=== PATIENT | female | born 1955 | race Asian ===

== ENCOUNTER 2017-07-31 14:18 | Outpatient (CLI) | payer OTHER | END 2017-07-31 22:51 | disposition home or self-care (01) | LOC: RAD 14:18 | DX: M25.561 Pain in right knee (principal); M25.562 Pain in left knee ==

== ENCOUNTER 2017-08-18 09:19 | Outpatient (CLI) | payer OTHER | END 2017-08-18 22:44 | disposition home or self-care (01) | LOC: RAD 09:19 | DX: M85.88 Other specified disorders of bone density and structure, other site (principal); Z13.820 Encounter for screening for osteoporosis ==

== ENCOUNTER 2017-10-27 14:28 | Outpatient (CLI) | payer OTHER | END 2017-10-27 22:33 | disposition home or self-care (01) | LOC: RAD 14:28 | DX: M25.551 Pain in right hip (principal) ==

== ENCOUNTER 2018-06-19 16:48 | Outpatient (CLI) | payer OTHER ==
[2018-06-19] MEDS ORDERED: MOBIC15 MG PO (23:07)
[2018-06-19] MEDS ORDERED: LISI20TA11 PO (23:08)
[2018-06-19] MEDS ORDERED: LEVOCETIRIZINE D5 MG PO (23:08)
[2018-06-19] MEDS ORDERED: PAROXETINE40 MG PO (23:09)
[2018-06-19] MEDS ORDERED: AMLODIPINE BESYLATE PO (23:10)
[2018-06-19] MEDS ORDERED: GABA300C2 PO (23:10)
== END 2018-06-19 16:53 | disposition short-term general hospital (02) ==
LOC: AMB 16:48
DX: R06.09 Other forms of dyspnea (principal)
CPT/HCPCS: A0425; A0427

== ENCOUNTER 2018-06-19 17:03 | Inpatient (IN) | payer OTHER ==
[2018-06-19] VITALS (8 sets, daily range): BP systolic 104–160; BP diastolic 75–93; TEMP 101–101.3
[~2018-06-19] VITALS: Ht 162.6 cm; Wt 163.5 kg
[2018-06-19 17:28] LABS: PLATELET COUNT 382 K/uL (152-353)
[2018-06-19 17:36] LABS: POTASSIUM 3.1 mmol/L (3.6-5.2); SODIUM 136 mmol/L (136-145)
[2018-06-19] MEDS ORDERED: MOBIC15 MG PO (23:07)
[2018-06-19] MEDS ORDERED: LEVOCETIRIZINE D5 MG PO (23:08)
[2018-06-19] MEDS ORDERED: LISI20TA11 PO (23:08)
[2018-06-19] MEDS ORDERED: PAROXETINE40 MG PO (23:09)
[2018-06-19] MEDS ORDERED: AMLODIPINE BESYLATE PO (23:10)
[2018-06-19] MEDS ORDERED: GABA300C2 PO (23:10)
[2018-06-20] VITALS (26 sets, daily range): BP systolic 120–169; BP diastolic 60–96; TEMP 97.9–99.4; Ht 162.6 cm; Wt 163.5 kg
[2018-06-21] VITALS (25 sets, daily range): BP systolic 113–191; BP diastolic 47–108; TEMP 98.2–99.5
[2018-06-21 05:35] LABS: PLATELET COUNT 356 K/uL (152-353)
[2018-06-21 05:52] LABS: POTASSIUM 3.6 mmol/L (3.6-5.2)
[2018-06-22] VITALS (25 sets, daily range): BP systolic 103–165; BP diastolic 62–108; TEMP 98.7–100
[2018-06-22 06:42] LABS: PLATELET COUNT 353 K/uL (152-353)
[2018-06-22 06:45] LABS: POTASSIUM 3.8 mmol/L (3.6-5.2)
[2018-06-23] VITALS (21 sets, daily range): BP systolic 121–183; BP diastolic 80–105; TEMP 98.2–100.7
[2018-06-23 06:03] LABS: POTASSIUM 3.6 mmol/L (3.6-5.2)
[2018-06-24] VITALS (8 sets, daily range): BP systolic 142–168; BP diastolic 89–100; TEMP 98.3–98.9
[2018-06-24 06:40] LABS: PLATELET COUNT 313 K/uL (152-353)
[2018-06-24 06:52] LABS: POTASSIUM 3.4 mmol/L (3.6-5.2)
[2018-06-25] VITALS: BP 127/93; TEMP 98.3
[2018-06-25 04:00] VITALS: BP 159/88; TEMP 97.7
[2018-06-25 06:31] LABS: POTASSIUM 3.6 mmol/L (3.6-5.2)
[2018-06-25 08:00] VITALS: BP 168/88; TEMP 97.9
[2018-06-25 09:28] LABS: PLATELET COUNT 331 K/uL (152-353)
[2018-06-25 09:53] LABS: POTASSIUM 3.5 mmol/L (3.6-5.2)
[2018-06-25] MEDS ORDERED: IPRATROPIUM/ INH (11:23)
[2018-06-25] MEDS ORDERED: NEBULIZE1 INH (11:25)
[2018-06-25 12:00] VITALS: BP 139/90; TEMP 98.2
== END 2018-06-25 16:00 | disposition home or self-care (01) | DRG 190 ==
LOC: ED 17:03 → MED/SURG 22:42 → ICU 06-20 00:40 → MED/SURG 06-24 15:40
PROVIDERS: Emergency Medicine; Family Medicine; ADMIT Internal Medicine
DX: J44.0 Chronic obstructive pulmonary disease with (acute) lower respiratory infection (principal); J18.8 Other pneumonia, unspecified organism; J44.1 Chronic obstructive pulmonary disease with (acute) exacerbation; I27.20 Pulmonary hypertension, unspecified; I50.9 Heart failure, unspecified
CPT/HCPCS: 36415; 36600; 51702; 80048; 80053; 81000; 82550; 82553; 82805; 83880; 84484; 85007; 85027; 87040; 87070; 87205; 87899; 93005; 93306; 94640; 94660; 94664; 94760; 96365; 96366; 96375; 99285; J0456; J0696; J1650; J1940; J2930; Q9963

== ENCOUNTER 2018-10-21 15:24 | Emergency (ER) | payer OTHER ==
[~2018-10-21] VITALS: Ht 162.6 cm; Wt 163.3 kg
[~2018-10-21 15:24] MED LIST: AMLODIPINE BESYLATE PO; GABA300C2 PO; IPRATROPIUM/ INH; LEVOCETIRIZINE D5 MG PO; LISI20TA11 PO; MOBIC15 MG PO; NEBULIZE1 INH; PAROXETINE40 MG PO
[2018-10-21 15:35] VITALS: TEMP 97
[2018-10-21 15:52] LABS: PLATELET COUNT 414 K/uL (152-353)
[2018-10-21 16:10] LABS: PARTIAL THROMBOPLASTIN TIME 25.9 SECONDS (24.5-33.6)
[2018-10-21 16:13] LABS: POTASSIUM 5.8 mmol/L (3.6-5.2); SODIUM 136 mmol/L (136-145)
[2018-10-21 17:30] VITALS: BP 104/72
== END 2018-10-21 17:26 | disposition short-term general hospital (02) ==
LOC: ED 15:24
PROVIDERS: Hospitalist
DX: N17.9 Acute kidney failure, unspecified (principal); E86.0 Dehydration; I50.9 Heart failure, unspecified
CPT/HCPCS: 36415; 80053; 82550; 83880; 84484; 85027; 85610; 85730; 93005; 96360; 96361; 96375; 99284; J1940; J2405

== ENCOUNTER 2018-10-21 18:10 | Outpatient (CLI) | payer OTHER | END 2018-10-21 19:24 | disposition short-term general hospital (02) | LOC: AMB 18:10 | DX: N17.8 Other acute kidney failure (principal); E66.8 Other obesity | CPT/HCPCS: A0425; A0429 ==

== ENCOUNTER 2019-01-17 11:06 | Outpatient (CLI) | payer OTHER | END 2019-01-17 20:25 | disposition home or self-care (01) | LOC: RAD 11:06 | DX: M25.551 Pain in right hip (principal) ==

== ENCOUNTER 2019-01-25 11:16 | Outpatient (CLI) | payer OTHER ==
[2019-01-25] MEDS ORDERED: GABA300C2 PO (18:47)
[2019-01-25] MEDS ORDERED: CALC667T2 PO (18:48)
[2019-01-25] MEDS ORDERED: DICL75TA4 PO (18:49)
== END 2019-01-25 11:21 | disposition short-term general hospital (02) ==
LOC: AMB 11:16
DX: R06.02 Shortness of breath (principal); R06.2 Wheezing
CPT/HCPCS: A0425; A0427

== ENCOUNTER 2019-01-25 11:26 | Observation (INO) | payer OTHER ==
[~2019-01-25] VITALS: Ht 162.6 cm; Wt 189.7 kg
[2019-01-25] VITALS (10 sets, daily range): BP systolic 150–192; BP diastolic 77–111; TEMP 97.7–98.7
[2019-01-25 12:09] LABS: PLATELET COUNT 403 K/uL (152-353)
[2019-01-25 12:19] LABS: POTASSIUM 3.7 mmol/L (3.6-5.2); SODIUM 143 mmol/L (136-145)
[2019-01-25] MEDS ORDERED: GABA300C2 PO (18:47)
[2019-01-25] MEDS ORDERED: CALC667T2 PO (18:48)
[2019-01-25] MEDS ORDERED: DICL75TA4 PO (18:49)
[2019-01-26 04:00] VITALS: BP 149/86; TEMP 97.8
[2019-01-26 04:51] LABS: PLATELET COUNT 394 K/uL (152-353)
[2019-01-26 05:14] LABS: POTASSIUM 3.8 mmol/L (3.6-5.2)
[2019-01-26 08:00] VITALS: BP 160/92; TEMP 98.2
[2019-01-26 12:00] VITALS: BP 154/78; TEMP 97.9
== END 2019-01-26 13:20 | disposition home or self-care (01) ==
LOC: ED 11:26 → MED/SURG 16:45
PROVIDERS: Family Medicine; ADMIT Family Medicine
DX: J44.1 Chronic obstructive pulmonary disease with (acute) exacerbation (principal); I83.009 Varicose veins of unspecified lower extremity with ulcer of unspecified site; I89.0 Lymphedema, not elsewhere classified; R53.81 Other malaise
CPT/HCPCS: 36415; 36600; 51702; 80053; 81000; 82805; 83735; 83880; 84100; 84484; 85027; 93005; 94640; 94664; 94760; 96374; 96375; 99220; 99284; G0378; J1650; J1940; J2930; J3490

== ENCOUNTER 2019-01-30 11:10 | Inpatient (IN) | payer OTHER ==
[~2019-01-30 11:10] MED LIST changes: +CALC667T2 PO; +DICL75TA4 PO
== END 2019-02-06 18:30 | disposition home or self-care (01) ==
LOC: PAVB 11:10
PROVIDERS: ADMIT Family Medicine

== ENCOUNTER 2019-01-31 05:12 | Outpatient (CLI) | payer OTHER ==
[2019-01-31 05:48] LABS: PLATELET COUNT 420 K/uL (152-353)
[2019-01-31 06:10] LABS: POTASSIUM 3.9 mmol/L (3.6-5.2)
== END 2019-01-31 23:26 | disposition home or self-care (01) ==
LOC: LAB 05:12
PROVIDERS: Family Medicine
DX: Z16.24 Resistance to multiple antibiotics (principal); I50.9 Heart failure, unspecified; Z86.11 Personal history of tuberculosis; I11.0 Hypertensive heart disease with heart failure
CPT/HCPCS: 80053; 80061; 82306; 82607; 83540; 84443; 85027; 86480; 87081

== ENCOUNTER 2019-02-05 11:10 | Outpatient (CLI) | payer OTHER | END 2019-02-05 20:19 | disposition home or self-care (01) | LOC: RAD 11:10 | DX: R79.89 Other specified abnormal findings of blood chemistry (principal) ==

== ENCOUNTER 2020-07-19 09:02 | Emergency (ER) | payer OTHER ==
[~2020-07-19] VITALS: Ht 162.6 cm; Wt 144.2 kg
[2020-07-19 10:02] LABS: PLATELET COUNT 326 K/uL (152-353)
[2020-07-19 10:56] LABS: PARTIAL THROMBOPLASTIN TIME 23.3 SECONDS (24.5-33.6)
[2020-07-19 10:57] LABS: POTASSIUM 4.3 mmol/L (3.6-5.2); SODIUM 139 mmol/L (136-145)
[2020-07-19 11:55] VITALS: BP 151/82; TEMP 98.3
== END 2020-07-19 12:44 | disposition short-term general hospital (02) ==
LOC: ED 09:02
PROVIDERS: Hospitalist
DX: J44.1 Chronic obstructive pulmonary disease with (acute) exacerbation (principal); I50.9 Heart failure, unspecified; R09.02 Hypoxemia; Z20.822 Contact with and (suspected) exposure to COVID-19; F17.210 Nicotine dependence, cigarettes, uncomplicated
CPT/HCPCS: 36415; 36600; 80053; 81000; 82550; 82805; 83880; 84484; 85027; 85610; 85730; 87502; 87635; 87651; 93005; 94660; 94664; 96374; 99285; J1100; U0003

== ENCOUNTER 2020-08-08 22:55 | Emergency (ER) | payer OTHER ==
[~2020-08-08] VITALS: Ht 162.6 cm; Wt 144.2 kg
[2020-08-08 22:55] VITALS: TEMP 97.9
[2020-08-08 23:24] LABS: PLATELET COUNT 329 K/uL (152-353)
[2020-08-09 00:05] LABS: POTASSIUM 3.4 mmol/L (3.6-5.2); SODIUM 142 mmol/L (136-145)
[2020-08-09] MEDS ORDERED: FURO40TA93 PO (00:05)
[2020-08-09 02:01] VITALS: BP 147/100
[2020-08-09 05:11] LABS: PARTIAL THROMBOPLASTIN TIME 22.7 SECONDS (24.5-33.6)
== END 2020-08-09 02:01 | disposition short-term general hospital (02) ==
LOC: ED 23:00
PROVIDERS: Family Medicine
PROC: 0T9B70Z Drainage of Bladder with Drainage Device, Via Natural or Artificial Opening (ICD-10-PCS; principal; 2020-08-08)
DX: J96.00 Acute respiratory failure, unspecified whether with hypoxia or hypercapnia (principal); J81.1 Chronic pulmonary edema; Z20.822 Contact with and (suspected) exposure to COVID-19; F17.210 Nicotine dependence, cigarettes, uncomplicated
CPT/HCPCS: 36600; 51702; 80053; 81000; 82550; 82805; 83880; 84484; 85027; 85610; 85730; 87635; 93005; 94640; 94660; 94664; 96365; 96366; 99284; J0696; U0003

== ENCOUNTER 2020-08-31 12:22 | Inpatient (IN) | payer OTHER ==
[~2020-08-31] VITALS: Ht 162.6 cm; Wt 175.7 kg
[~2020-08-31 12:22] MED LIST changes: +FURO40TA93 PO
[2020-08-31 12:28] VITALS: BP 107/71; TEMP 98.4
[2020-08-31 13:23] LABS: PLATELET COUNT 292 K/uL (152-353)
[2020-08-31 13:53] LABS: POTASSIUM 3.2 mmol/L (3.6-5.2)
--- NOTE | 2020-08-31 16:45 | NUR ---
PT HAD 16F OGDEN INSERTED BY MATT SUÁREZ CNA PER DOCTORS ORDERS. INSERTION WENT WITHOUT DIFFICULTY AND CLEAR URINE FILLED THE OGDEN BAG UPON INSERTION.
[2020-08-31 16:51] VITALS: BP 166/101; TEMP 98.1; Ht 162.6 cm; Wt 175.7 kg
[2020-08-31 20:00] VITALS: BP 140/83; TEMP 98.2
[2020-08-31] MEDS ORDERED: BUDE1AER3 INH (21:09)
[2020-08-31] MEDS ORDERED: NAPROXEN DR500 MG PO (21:10)
[2020-09-01 00:20] VITALS: BP 142/91; TEMP 98.2
[2020-09-01 04:00] VITALS: BP 140/87; TEMP 98.5
[2020-09-01 05:22] LABS: PLATELET COUNT 274 K/uL (152-353)
[2020-09-01 05:29] LABS: POTASSIUM 3.8 mmol/L (3.6-5.2)
[2020-09-01 08:00] VITALS: BP 135/76; TEMP 98.4
[2020-09-01 12:00] VITALS: BP 112/48; TEMP 98.4
--- NOTE | 2020-09-01 14:00 | NUR ---
PT ASKED FOR HELP TO THE RESTROOM FOR A BOWEL MOVEMENT. WHEN BEGINNING TO ASSIST PT IT CAME AWARE THAT THE PT HAD ALREADY HAD A BOWEL MOVEMENT. PT RECIEVED A BED BATH, CATHETER CARE, AND LINEN CHANGE. AND IS NOW RESTING IN HIGH FOWLERS WITH NO SIGNS OF DISTRESS.
[2020-09-01 16:00] VITALS: BP 146/76; TEMP 98.5
[2020-09-01 20:00] VITALS: BP 133/70; TEMP 99.2
--- NOTE | 2020-09-01 20:45 | NUR ---
ENTERED PATIENT'S ROOM. PATIENT IN HIGH SMA'S POSITION WATCHING TV. NC @ 3L/MIN. NAD NOTED. SHE STATES THAT SHE NEEDS TO HAVE A BOWEL MOVEMENT. ALERT AND ORIENTED X4. PATIENT ASSISTED TO BSC BY PCT AND MYSELF. SHE DID USE A WALKER FOR BALANCE AND WAS ABLE TO STAND AND PIVOT TO BSC WITH NO ISSUES. PATIENT NOTED TO HAVE SOME INCONTINENCE OF BOWELS BUT ALSO HAD A SMALL LOOSE BM IN THE BSC. ASSISTED BACK TO BED WITH NO ISSUES. BED LOCKED AND IN LOWEST POSITION. NC INTACT. CALL LIGHT WITHIN REACH.
--- NOTE | 2020-09-01 21:30 | NUR ---
PATIENT NOTED TO BE NON-COMPLIANT WITH WEARING HER O2 AFTER MULTIPLE ATTEMPTS TO REMIND HER. 20G TO LEFT AC FLUSHED WITH NS AND LASIX 40MG GIVEN SCHEDULED. NO OTHER CONCERNS OR COMPLAINTS VOICED. IT IS NOTED UPON ASSESSMENT THAT PATIENT'S RIGHT EYE IS RED AND DRAINING. SHE STATES THAT IT HAPPENS FREQUENTLY, AND SHE HAS SOME DROPS AT HOME FOR IT. CALL LIGHT WITHIN REACH.
[2020-09-02] VITALS (7 sets, daily range): BP systolic 100–130; BP diastolic 57–71; TEMP 97.7–98.7
--- NOTE | 2020-09-02 03:00 | NUR ---
PATIENT AWAKE AND WATCHING TV. NC INTACT. NAD NOTED. ENCOURAGED PATIENT TO TRY TO GET SOME REST. SHE STATES SHE DOES HAVE TROUBLE SLEEPING AT HOME SOMETIMES. CALL LIGHT WITHIN REACH.
--- NOTE | 2020-09-02 23:47 | NUR ---
NOTIFIED PHYSICIAN AT THIS TIME OF PT. EXPRESSING TROUBLE SLEEPING IN NEW SURROUNDINGS AND STATED "MY GABAPENTIN NORMALLY HELPS ME REST BUT NOT NOW." RECEIVED A TELEPHONE ORDER FOR DR. DAMON IN THE ER FOR AMBIEN 10 MG PO ONE TIME DOSE. WILL MONITOR PT. NOTED AND CARRIED OUT.
[2020-09-03 03:44] VITALS: BP 106/72; TEMP 97.8
--- NOTE | 2020-09-03 06:19 | NUR ---
PATIENT WAS HELPED TO THE BS AND HAD A SMALL SOFT BOWL MOVEMENT. PATIENT IS NOW RESTING QUIETLY IN HIGH FOWLERS
[2020-09-03 08:00] VITALS: BP 123/73; TEMP 98
[2020-09-03 09:10] LABS: PLATELET COUNT 278 K/uL (152-353)
[2020-09-03 09:22] LABS: POTASSIUM 3.5 mmol/L (3.6-5.2)
--- NOTE | 2020-09-03 09:36 | NUR ---
CRITICAL LAB CALLED TO FLOOR BY NOELLE. CO2 OF 48.
[2020-09-03] MEDS ORDERED: POTA20TA4 PO (11:43)
[2020-09-03 12:00] VITALS: BP 125/75; TEMP 98.1
--- NOTE | 2020-09-03 13:10 | NUR ---
1220 PT VOIDED 250ML
--- NOTE | 2020-09-03 13:12 | NUR ---
IV D/C INTACT. D/C INSTRUCTIONS GIVEN TO PT AND FIDEL VINES. BOTH VERBALIZE UNDERSTANDING. NEW MED EDUCATION PROVIDED
--- NOTE | 2020-09-03 14:14 | NUR ---
PT OUT OF FACILTY VIA WC ACCOMPANIED BY NURSING STAFF AND SON.
== END 2020-09-03 14:15 | disposition home or self-care (01) | DRG 189 ==
LOC: ED 12:22 → MED/SURG 14:35 → UNDODEPER 09-02 15:59 → MED/SURG 09-03 14:15
PROVIDERS: Emergency Medicine; Internal Medicine; ADMIT Internal Medicine Endocrinology, Diabetes & Metabolism; ATTEND Internal Medicine Endocrinology, Diabetes & Metabolism
DX: J96.21 Acute and chronic respiratory failure with hypoxia (principal); I11.0 Hypertensive heart disease with heart failure; I50.9 Heart failure, unspecified; E66.01 Morbid (severe) obesity due to excess calories; Z68.43 Body mass index [BMI] 50.0-59.9, adult; F41.8 Other specified anxiety disorders; E87.6 Hypokalemia; J44.9 Chronic obstructive pulmonary disease, unspecified; R73.09 Other abnormal glucose
CPT/HCPCS: 36415; 80048; 80053; 82550; 82553; 83735; 83880; 84484; 85027; 87635; 93005; 94664; 94760; 96374; 99284; J1650; J1940; U0003

== ENCOUNTER 2020-09-14 13:10 | Emergency (ER) | payer OTHER ==
[~2020-09-14] VITALS: Ht 162.6 cm; Wt 175.5 kg
[~2020-09-14 13:10] MED LIST changes: +BUDE1AER3 INH; +NAPROXEN DR500 MG PO; +POTA20TA4 PO
[2020-09-14 13:12] VITALS: TEMP 97.6
[2020-09-14 13:33] LABS: PLATELET COUNT 444 K/uL (152-353)
[2020-09-14 13:42] LABS: POTASSIUM 3.8 mmol/L (3.6-5.2); SODIUM 144 mmol/L (136-145)
[2020-09-14 15:30] VITALS: BP 163/93
== END 2020-09-14 15:45 | disposition home or self-care (01) ==
LOC: ED 13:10
PROVIDERS: Emergency Medicine
DX: R06.09 Other forms of dyspnea (principal); M54.5 Low back pain; E66.8 Other obesity
CPT/HCPCS: 80053; 83880; 84484; 85027; 85379; 93005; 96374; 99284; J1940

== ENCOUNTER 2020-10-08 17:17 | Emergency (ER) | payer OTHER ==
[~2020-10-08] VITALS: Ht 162.6 cm; Wt 175.5 kg
[2020-10-08 17:17] VITALS: TEMP 97
[2020-10-08 18:00] LABS: PLATELET COUNT 353 K/uL (152-353)
[2020-10-08 18:15] LABS: POTASSIUM 3.3 mmol/L (3.6-5.2); SODIUM 145 mmol/L (136-145)
[2020-10-08 19:04] LABS: PARTIAL THROMBOPLASTIN TIME 24.1 SECONDS (24.5-33.6)
[2020-10-09 00:30] VITALS: BP 145/86
== END 2020-10-09 01:15 | disposition home or self-care (01) ==
LOC: ED 17:32
PROVIDERS: Emergency Medicine
DX: I50.9 Heart failure, unspecified (principal); J44.9 Chronic obstructive pulmonary disease, unspecified; F17.210 Nicotine dependence, cigarettes, uncomplicated; E66.8 Other obesity
CPT/HCPCS: 80053; 82550; 83880; 84484; 85027; 85379; 85610; 85730; 93005; 96374; 99284; J1940

== ENCOUNTER 2020-10-11 15:30 | Emergency (ER) | payer OTHER ==
[~2020-10-11] VITALS: Ht 162.6 cm; Wt 213.2 kg
[2020-10-11 15:35] VITALS: TEMP 97.7
[2020-10-11 16:21] LABS: PLATELET COUNT 445 K/uL (152-353)
[2020-10-11 16:40] LABS: POTASSIUM 3.4 mmol/L (3.6-5.2); SODIUM 146 mmol/L (136-145)
[2020-10-11 20:07] VITALS: BP 149/91
== END 2020-10-11 20:45 | disposition home or self-care (01) ==
LOC: ED 15:30
PROVIDERS: Hospitalist
DX: I50.9 Heart failure, unspecified (principal); J44.9 Chronic obstructive pulmonary disease, unspecified; Z99.81 Dependence on supplemental oxygen; F17.210 Nicotine dependence, cigarettes, uncomplicated; Z20.822 Contact with and (suspected) exposure to COVID-19
CPT/HCPCS: 80053; 82550; 83880; 84484; 85027; 85610; 85730; 87635; 93005; 94664; 96374; 96375; 99284; J1940; J2930; U0003

== ENCOUNTER 2020-10-19 12:18 | Emergency (ER) | payer OTHER ==
[~2020-10-19] VITALS: Ht 162.6 cm; Wt 213.2 kg
[2020-10-19 13:22] LABS: PLATELET COUNT 302 K/uL (152-353)
[2020-10-19 13:27] LABS: SODIUM 144 mmol/L (136-145)
[2020-10-19 20:15] VITALS: BP 112/65; TEMP 98
== END 2020-10-19 20:15 | disposition home or self-care (01) ==
LOC: ED 12:18
PROVIDERS: Emergency Medicine Emergency Medical Services
PROC: 0T9B70Z Drainage of Bladder with Drainage Device, Via Natural or Artificial Opening (ICD-10-PCS; principal; 2020-10-19)
DX: R23.8 Other skin changes (principal); N39.0 Urinary tract infection, site not specified
CPT/HCPCS: 36415; 51702; 80053; 81000; 83880; 84484; 85027; 85610; 87040; 87077; 87086; 87088; 87186; 93005; 96365; 96375; 99284; J0696; J1940

== ENCOUNTER 2020-11-23 14:11 | Emergency (ER) | payer OTHER ==
[~2020-11-23] VITALS: Ht 162.6 cm; Wt 213.2 kg
[2020-11-23 14:20] VITALS: TEMP 97.4
[2020-11-23 14:42] LABS: PLATELET COUNT 270 K/uL (152-353)
[2020-11-23 14:45] LABS: POTASSIUM 4.9 mmol/L (3.6-5.2); SODIUM 143 mmol/L (136-145)
[2020-11-23 17:39] VITALS: BP 125/89
== END 2020-11-23 17:43 | disposition home or self-care (01) ==
LOC: ED 14:11
PROVIDERS: Emergency Medicine Emergency Medical Services
PROC: 0T9B70Z Drainage of Bladder with Drainage Device, Via Natural or Artificial Opening (ICD-10-PCS; principal; 2020-11-23)
DX: R60.0 Localized edema (principal); Z20.822 Contact with and (suspected) exposure to COVID-19
CPT/HCPCS: 51702; 80053; 81000; 83880; 84484; 85027; 87635; 93005; 96374; 96375; 96376; 99284; J1885; J1940; U0003

== ENCOUNTER 2020-12-04 12:38 | Emergency (ER) | payer OTHER ==
[~2020-12-04] VITALS: Ht 162.6 cm; Wt 213.2 kg
[2020-12-04 15:12] LABS: PLATELET COUNT 382 K/uL (152-353)
[2020-12-04 15:24] LABS: PARTIAL THROMBOPLASTIN TIME 26.4 SECONDS (24.5-33.6)
[2020-12-04 15:33] LABS: POTASSIUM 4.1 mmol/L (3.6-5.2); SODIUM 143 mmol/L (136-145)
[2020-12-04 22:56] VITALS: BP 141/87; TEMP 97.5
== END 2020-12-04 22:56 | disposition home or self-care (01) ==
LOC: ED 12:38
PROVIDERS: Hospitalist
DX: I50.9 Heart failure, unspecified (principal); J44.9 Chronic obstructive pulmonary disease, unspecified; J18.9 Pneumonia, unspecified organism; Z20.822 Contact with and (suspected) exposure to COVID-19; F17.210 Nicotine dependence, cigarettes, uncomplicated
CPT/HCPCS: 36600; 80053; 81000; 82550; 82805; 83605; 83880; 84484; 85027; 85610; 85730; 87040; 87635; 94660; 94664; 96365; 96376; 99284; J1100; J1940; J1956; U0003

== ENCOUNTER 2020-12-10 11:00 | Emergency (ER) | payer OTHER ==
[~2020-12-10] VITALS: Ht 162.6 cm; Wt 213.2 kg
[2020-12-10 11:31] LABS: PLATELET COUNT 316 K/uL (152-353)
[2020-12-10 11:45] LABS: PARTIAL THROMBOPLASTIN TIME 23.5 SECONDS (24.5-33.6)
[2020-12-10 11:47] LABS: POTASSIUM 3.6 mmol/L (3.6-5.2); SODIUM 143 mmol/L (136-145)
[2020-12-10 16:00] VITALS: TEMP 97.9
[2020-12-11 09:00] VITALS: BP 140/76
== END 2020-12-11 09:10 | disposition home or self-care (01) ==
LOC: ED 11:00
PROVIDERS: Emergency Medicine
PROC: 0T9B70Z Drainage of Bladder with Drainage Device, Via Natural or Artificial Opening (ICD-10-PCS; principal; 2020-12-10)
DX: I50.9 Heart failure, unspecified (principal)
CPT/HCPCS: 51702; 80053; 83880; 84484; 85027; 85379; 85610; 85730; 93005; 96374; 99284; J1940

== ENCOUNTER 2020-12-11 12:30 | Observation (INO) | payer OTHER ==
[~2020-12-11] VITALS: Ht 162.6 cm; Wt 176.1 kg
[2020-12-11 13:27] VITALS: BP 115/67; TEMP 98
[2020-12-11 17:10] LABS: PLATELET COUNT 318 K/uL (152-353)
[2020-12-11 17:37] LABS: POTASSIUM 3.4 mmol/L (3.6-5.2); SODIUM 138 mmol/L (136-145)
[2020-12-11 19:30] VITALS: BP 157/93
[2020-12-11 20:30] VITALS: BP 134/85
[2020-12-11 21:30] VITALS: BP 140/82
[2020-12-11 22:30] VITALS: BP 143/84
[2020-12-11 23:30] VITALS: BP 139/92
[2020-12-12 04:00] VITALS: BP 127/69; TEMP 98
[2020-12-12 04:45] LABS: POTASSIUM 3.5 mmol/L (3.6-5.2)
[2020-12-12 05:26] LABS: PLATELET COUNT 286 K/uL (152-353)
[2020-12-12 08:00] VITALS: BP 109/76; TEMP 97.7
--- NOTE | 2020-12-12 08:51 | NUR ---
12/12/20 @ 0031 PT ADMITTED TO ROOM 1119 VIA STREATCHER FROM ER. PT ASSISTED INTO BED X4 PERSON ASSIST. PT ADMITTED WITH DX:CHF AND EXACERBATION. PT HAS EDEMA TO BLE. STAGE 4 TO LLE DRESSING REDONED WITH WET TO DRY DRESSING. PT HAS A OGDEN CATH TO BSD WITH CLEAR YELLOW URINE TO BSD. PT HAS A 22G SL TO LEFT WRIST. PT ORIENTED TO ROOM AND CALL BUTTONS. NO C/O VOICED. NO S/S OF DISTRESS. CALL LIGHT IN EASY REACH. T98.3 P64 R22 BP176/107 O2 94% WITH O2 AT 2L/M. BP RECHECKED 30 MINUTES LATER AFTER PT GOT SETTLE DOWN IN BED AND IT WAS 144/83.
[2020-12-12 12:00] VITALS: BP 103/55; TEMP 97.9
--- NOTE | 2020-12-12 18:10 | NUR ---
PT HAS BEEN DISCHARGED FROM [facility] VIA [facility]. PT'S IV WAS REMOVED WITHOUT DIFFICULTY WITH CATHETER STILL INTACT. PT WAS ASSISTED ONTO TRANSPORT STRETCHER AND STRAPPED DOWN. PT WAS PLACED SAFELY INTO THE TRANSPORT VEHICLE ALONG WITH PERSONAL BELONGINGS. PT RETURNED HOME WITH OGDEN STILL INTACT, PT WAS ADMITTED WITH OGDEN PREVIOUSLY PLACED. PT WAS WEARING NASAL CANULA O2 AT 4LPM UPON DISCHARGE TO TRANSPORT VEHICLE. NAD WAS NOTED DURING DISCHARGE.
== END 2020-12-12 18:25 | disposition home or self-care (01) ==
LOC: ED 12:30 → MED/SURG 21:07
PROVIDERS: Emergency Medicine Emergency Medical Services; ADMIT Internal Medicine; ATTEND Internal Medicine
DX: E66.01 Morbid (severe) obesity due to excess calories (principal); Z68.43 Body mass index [BMI] 50.0-59.9, adult; Z71.3 Dietary counseling and surveillance; I11.0 Hypertensive heart disease with heart failure; I50.22 Chronic systolic (congestive) heart failure; M15.8 Other polyosteoarthritis; I89.0 Lymphedema, not elsewhere classified; I87.8 Other specified disorders of veins; J44.9 Chronic obstructive pulmonary disease, unspecified; E78.49 Other hyperlipidemia; I25.10 Atherosclerotic heart disease of native coronary artery without angina pectoris; G62.89 Other specified polyneuropathies
CPT/HCPCS: 36415; 80053; 83880; 84484; 85027; 87635; 94760; 96374; 99220; 99284; G0378; J1940; U0003

== ENCOUNTER 2021-01-01 14:08 | Inpatient (IN) | payer OTHER ==
[2021-01-01] VITALS (10 sets, daily range): BP systolic 108–167; BP diastolic 75–104; TEMP 97.8–98.4; Ht 162.6 cm; Wt 168.4 kg
[~2021-01-01] VITALS: Ht 162.6 cm; Wt 168.4 kg
[2021-01-01 15:21] LABS: PLATELET COUNT 364 K/uL (152-353)
[2021-01-01 15:28] LABS: POTASSIUM 4.4 mmol/L (3.6-5.2); SODIUM 143 mmol/L (136-145)
--- NOTE | 2021-01-01 18:16 | NUR ---
PT WAS ADMITTED FROM ER WITH COMPLAINTS OF SOB. PT IS OBESE BUT CAN MOVE IN BED. PT HAS A OGDEN CATHETER THAT WAS CHANGED IN ER TODAY PRIOR TO ADMISSION TO ROOM 112. PT ARRIVED VIA STRETCHER. PT IS AWAKE, ALERT AND ORIENTED. PT ANSWERS ALL QUESTIONS. PT IS ON O2 AT 3L/NC AND WEARS O2 AT 3L/NC AT HOME. PT LUNGS ARE DIMINISHED. HEART RATE REGUALR. PT NOTED TO HAVE A ABRASION TO PUBIC AREA. PT INNER THIGHS ARE RED. PT VOICED THAT SHE SMOKES 1/2 PACK OF CIGARETTES A DAY. PT VOICED THAT SHE USED HER "BREATHING MACHINE BEFORE CALLING EMS". WILL CONTINUE TO MONITOR PT.
--- NOTE | 2021-01-01 19:50 | NUR ---
EMPTIED 1400 ML OF CLEAR URINE. RESP AT BEDSIDE AND NEB TREATMENT WS GIVEN.
[2021-01-02] VITALS: BP 148/86; TEMP 98
--- NOTE | 2021-01-02 01:24 | NUR ---
PT WITH DECREASE O2 SATS. RESP AT BEDSIDE. CANNULA WAS CHANGED AND HUMIDIFIER WAS PLACED ON. O2 SATS IMPROVED TO 90'S WITH THIS CHANGE.
[2021-01-02 04:00] VITALS: BP 112/59; TEMP 97.9
--- NOTE | 2021-01-02 04:12 | NUR ---
PT WAS REPOSITIONED TO HER RIGHT SIDE. LAB AT BEDSIDE TO DRAW BLOOD.
[2021-01-02 06:53] LABS: PLATELET COUNT 348 K/uL (152-353)
[2021-01-02 08:00] VITALS: BP 115/70; TEMP 98
[2021-01-02 12:00] VITALS: BP 135/72; TEMP 98
[2021-01-02 16:00] VITALS: BP 144/85; TEMP 98
[2021-01-02 20:27] VITALS: BP 91/70; TEMP 98.6
[2021-01-03] VITALS (7 sets, daily range): BP systolic 99–149; BP diastolic 47–83; TEMP 97.9–98.9
--- NOTE | 2021-01-03 01:55 | NUR ---
PT REPOSITIONED IN BED. PT WAS INSTRUCTED TO ASSIST WITH HER TURNING. PT ABLE TO PULL ON RAILS WITH HANDGRIPS AND TURN TO HER RIGHT SIDE. PT IS WEARING OXYGEN AT 3L. PT HAS OGDEN CATHETAR. BEDSIDE TABLE IN EASY REACH.
--- NOTE | 2021-01-03 03:45 | NUR ---
PT HAS FOOL ULCER WHICH IS WRAPPED IN EDNA. FOUL ODOR FROM THIS SITE. GREEN DRAINAGE FROM THIS AREA.
[2021-01-03 06:14] LABS: PLATELET COUNT 347 K/uL (152-353)
[2021-01-03 06:16] LABS: POTASSIUM 3.7 mmol/L (3.6-5.2)
[2021-01-04 04:29] VITALS: BP 114/66; TEMP 98.3
[2021-01-04 05:57] LABS: PLATELET COUNT 323 K/uL (152-353)
[2021-01-04 06:11] LABS: POTASSIUM 3.5 mmol/L (3.6-5.2)
[2021-01-04 08:00] VITALS: BP 138/96; TEMP 97.9
--- NOTE | 2021-01-04 10:37 | NUR ---
PT AWAKE AND ALERT. DENIES ANY PAIN/DISCOMFORT. 16 HUNGARIAN OGDEN INTACT,URINE STRAW YELLOW. PT HAS POOR BODY ODOR R/T POOR HYGIENE. PT AGREES TO HAVE A BED BATH TODAY. O2 AT 3LPM INTACT VIA NC. PT REPORTED THAT SHE HAD A "SEIZURE" IN THE PM AND HAD DIFFICULTY BREATHING. IV SITE TO NANCY INTACT WITH NO SWELLING OR REDNESS NOTED. PT HAS BLANCHABLE AMERICO AREAS TO BUTTOCKS. MOTTLED SKIN AROUND PUBIC AREA. EDEMA TO UPPER AND LOWER EXTREMITIES.
--- NOTE | 2021-01-04 11:55 | NUR ---
PT GIVEN A BED BATH WITH 2 PERSON ASSIST. POOR HYGIENE. PT HAS WOUND TO RIGHT CALF WITH DRESSING INTACT AND COMPLETELY SATURATED WITH PURULENT DRAINAGE. FOUL ODOR TO WOUND. PT STATED THAT HOME HEALTH DOES WOUND CARE TO RIGHT CALF 2 X/WEEK. CONSULTED HCP REGARDING PTS WOUND. OBTAINED ORDER FOR DRESSING CHANGE TO RIGHT CALF BID, WET/DRY, APPLY 4X4 GAUZE, ABD PAD AND WRAP WITH KERLIX. WOUND CARE COMPLETED ORDERED TODAY. BED LINEN CHANGED. PT ON 1500 FLUID RESTRICTION PER HCP.
[2021-01-04 12:00] VITALS: BP 136/91; TEMP 98.1
--- NOTE | 2021-01-04 13:09 | NUR ---
Spoke with patient and she wants her information sent to [facility] @[phone]. Dispensary Attendant spoke with Deana and referral was sent. Awaiting confirmation on acceptance.
[2021-01-04 16:00] VITALS: BP 128/85; TEMP 98.7
--- NOTE | 2021-01-04 19:50 | NUR ---
PT AWAKE AND ALERT. C/O PAIN R/T DX. PTS IV SITE TO LEFT UPPER ARM INTACT. PT ED ON 1500 FLUID RESTRICTION. UR SENT PT INFORMATION TO [facility] FOR ADMISSION. PT STATED SHE WILL ONLY GO FOR 30 DAYS SHE PREFERS TO LIVE WITH HER SON.
[2021-01-04 20:00] VITALS: BP 129/76; TEMP 98.8
[2021-01-05 00:23] VITALS: BP 123/69; TEMP 98.5
[2021-01-05 04:00] VITALS: BP 152/91; TEMP 98.7
[2021-01-05 06:11] LABS: PLATELET COUNT 315 K/uL (152-353)
[2021-01-05 06:31] LABS: POTASSIUM 3.7 mmol/L (3.6-5.2)
[2021-01-05 08:00] VITALS: BP 148/95; TEMP 98.4
--- NOTE | 2021-01-05 08:19 | NUR ---
Patient had appointment with Indra Carrasquillo for knee injection today at 9am. Dr. Perry's office was notified and appointment was canceled. Will reschedule when ready for discharge.
--- NOTE | 2021-01-05 11:04 | NUR ---
PT C/O PAIN TO RIGHT LEG, R/T TO WOUND TO RIGHT ANKLE. WHEN TIME TO ADMINISTER PAIN MED PT REFUSED, STATED "I WILL TAKE IT LATER" REFERING TO HER AM MEDS WELL. PT HAS BANDAGE INTACT TO RIGHT ANKLE AND DRY. IV SITE TO NANCY INTACT AND FLUSHES WITH NO DIFFICULT, NO REDNESS OR SWELLING NOTED TO SITE. PT APPEARS DROWSY WITH CLEAR AND LOGICAL SPEECH.
[2021-01-05 12:00] VITALS: BP 149/86; TEMP 97.7
--- NOTE | 2021-01-05 14:48 | NUR ---
Spoke with patients ralph miller and he said that [facility] already had her proof of income from her previous stay. Proof Tester spoke with Deana in admission and she is checking to see if they still have the information.
[2021-01-05 16:00] VITALS: BP 117/96; TEMP 97.9
--- NOTE | 2021-01-05 17:51 | NUR ---
PT HAD BM X1 THIS SHIFT, CLEANED PT AND CHANGED BED LINEN. DRESSING TO RIGHT ANKLE/CALF DRY AND INTACT. DENIES ANY PAIN/DISCOMFORT SINCE THE BEGINNING OF SHIFT. PT COMPLIANT WITH PT/OT. SPOKE WITH PTS SON, MOHINDER AT 1635 TO GIVE UPDATE ON PTS STATUS. TRANSFERRED SON TO PTS ROOM TO SPEAKK WITH HER. PT A&O X4. OGDEN INTACT. PT HAS MULTIPLE AMERICO AREAS TO BUTTOCKS, BLANCHABLE. DRY AND SCALY SKIN NOTED, APPLIED LOTION TO LOWER EXTREMITIES. PT HAS "BLUE CONDITIONER" THAT WAS APPLIED TO HAIR AT PTS HOME. WASHED PTS HAIR BUT UNABLE TO COMPLETELY WASH "BLUE CONDITIONER" OUT OF HAIR. PTS HAIR "MATTED" TO HER HEAD,BRUSHED AND COMBED PTS HAIR AFTER WASHING. PT HAS "BLUE CONDITIONER" IN FINGERNAILS FROM SCRATCHING HER HEAD, ATTEMPTED TO CLEAN FINGERNAILS BUT UNABLE TO CLEAN ALL OF THE "BLUE CONDITIONER" OUT OF NAILBEDS. PT COOPERATIVE.
[2021-01-05 20:00] VITALS: BP 141/92; TEMP 98.4
[2021-01-06] VITALS: BP 134/56; TEMP 98.7
[2021-01-06 04:00] VITALS: BP 105/71; TEMP 98.1
[2021-01-06 05:57] LABS: PLATELET COUNT 333 K/uL (152-353)
[2021-01-06 06:04] LABS: POTASSIUM 3.6 mmol/L (3.6-5.2)
[2021-01-06 08:00] VITALS: BP 112/66; TEMP 98.4
[2021-01-06 12:00] VITALS: BP 151/85; TEMP 98.3
[2021-01-06 16:00] VITALS: BP 144/84; TEMP 98.2
[2021-01-06 20:00] VITALS: BP 154/79; TEMP 98.6
[2021-01-07] VITALS: BP 128/79; TEMP 98.1
[2021-01-07 04:00] VITALS: BP 167/93; TEMP 98
--- NOTE | 2021-01-07 06:12 | NUR ---
DRESSING CHANGE TO THE RIGHT LOWER LEG DONE AT THIS TIME. WET TO DRY DRESSING APPLIED WITH 4X4 GAUZE AND A ABD PAD WRAPPED IN ROBERT. PT. TOLERATED WELL.
--- NOTE | 2021-01-07 08:15 | NUR ---
AM ASSESSMENT COMPLETE
--- NOTE | 2021-01-07 11:00 | NUR ---
OGDEN CATH REMOVED
--- NOTE | 2021-01-07 14:29 | NUR ---
Patient transferring to [facility] today. [employer] transportation in picking her up. [employer] supervisor window is until 5:30pm. Trip #[id number] Ride assist phone # if issues [phone]. Nursing notified of transfer information.
--- NOTE | 2021-01-07 15:00 | NUR ---
PT INCONT OF BM, PT GIVEN BED BATH, PT ABLE TO ASSIST IN TURNING.
--- NOTE | 2021-01-07 15:57 | NUR ---
GELY PEARL TO PIETER HARTMAN LPN AND GISELLA MARIO AT [facility]
--- NOTE | 2021-01-07 18:59 | NUR ---
PT LEAVING FOR [facility] VIA TRANSPORT HOLLI
== END 2021-01-07 19:00 | DRG 291 ==
LOC: ED 14:08 → MED/SURG 16:15
PROVIDERS: Emergency Medicine Emergency Medical Services; ADMIT Internal Medicine Endocrinology, Diabetes & Metabolism; ATTEND Internal Medicine Endocrinology, Diabetes & Metabolism
DX: I11.0 Hypertensive heart disease with heart failure (principal); J96.21 Acute and chronic respiratory failure with hypoxia; I50.33 Acute on chronic diastolic (congestive) heart failure; J44.9 Chronic obstructive pulmonary disease, unspecified; Z68.44 Body mass index [BMI] 60.0-69.9, adult; F41.8 Other specified anxiety disorders; R53.1 Weakness; R62.7 Adult failure to thrive; R26.89 Other abnormalities of gait and mobility; E66.2 Morbid (severe) obesity with alveolar hypoventilation; G62.9 Polyneuropathy, unspecified; L97.219 Non-pressure chronic ulcer of right calf with unspecified severity
CPT/HCPCS: 36415; 51702; 80048; 80053; 81000; 83880; 84484; 85008; 85027; 87635; 93005; 94640; 94664; 94760; 96374; 99284; J1650; J1885; J1940; J2270; U0003

== ENCOUNTER 2021-11-26 11:08 | Outpatient (CLI) | payer OTHER | END 2021-11-26 19:09 | disposition home or self-care (01) | LOC: RESP 11:08 | PROVIDERS: ATTEND Specialist | DX: I11.0 Hypertensive heart disease with heart failure (principal); I50.9 Heart failure, unspecified; Z72.0 Tobacco use ==

== ENCOUNTER 2022-08-09 22:54 | Observation (INO) | payer OTHER ==
[~2022-08-09] VITALS: Ht 162.6 cm; Wt 148.3 kg
[2022-08-09 22:55] VITALS: BP 135/53; TEMP 97.5
[2022-08-09 23:30] VITALS: BP 116/52
[2022-08-09 23:39] LABS: PLATELET COUNT 303 K/uL (152-353)
[2022-08-10] VITALS (10 sets, daily range): BP systolic 123–181; BP diastolic 37–95; TEMP 97.4–98.7; Ht 162.6 cm; Wt 148.3 kg
[2022-08-10 00:45] LABS: POTASSIUM 3.7 mmol/L (3.6-5.2)
[2022-08-10 01:11] LABS: PARTIAL THROMBOPLASTIN TIME 31.4 SECONDS (23.9-36.7)
[2022-08-10 08:16] LABS: POTASSIUM 3.7 mmol/L (3.6-5.2)
[2022-08-10] MEDS ORDERED: LEVAQUIN PO (10:39)
[2022-08-10] MEDS ORDERED: ACET-206 PO (10:40)
[2022-08-10] MEDS ORDERED: TRAMADOL HCL100 MG PO (10:41)
[2022-08-10] MEDS ORDERED: BUSPIRONE10 MG PO (10:42)
[2022-08-10] MEDS ORDERED: IPRATROPIUM/ INH (10:42)
[2022-08-10] MEDS ORDERED: FURO20TA67 PO (10:43)
[2022-08-10] MEDS ORDERED: CELE200C2 PO (10:43)
[2022-08-10] MEDS ORDERED: PANTOPRAZOLE 40MG TA PO (10:44)
[2022-08-10] MEDS ORDERED: MULTIVITAMIN1 TA1 PO (10:44)
[2022-08-10] MEDS ORDERED: OLANZAPINE ODT PO (10:45)
[2022-08-10] MEDS ORDERED: MIRALAX17 GM/SCOO PO (10:46)
[2022-08-10] MEDS ORDERED: OXYC5TAB24 PO (10:46)
[2022-08-10] MEDS ORDERED: LOPERAMIDE2 MG PO (10:47)
[2022-08-10] MEDS ORDERED: ASPIR-LOW81 MG PO (10:48)
[2022-08-11 04:00] VITALS: BP 111/41; TEMP 98.2
[2022-08-11 07:55] VITALS: BP 137/50; TEMP 98.5
[2022-08-11 12:00] VITALS: BP 129/49; TEMP 98.5
[2022-08-11 16:00] VITALS: BP 131/57; TEMP 98.3
[2022-08-11 19:49] VITALS: BP 131/62; TEMP 98.4
[2022-08-12] VITALS: BP 130/47; TEMP 99
[2022-08-12 04:00] VITALS: BP 127/66; TEMP 98.5
[2022-08-12 08:00] VITALS: BP 138/60; TEMP 98.3
[2022-08-12] MEDS ORDERED: ULTRAM 50MG TAB PO (09:40)
[2022-08-12 12:00] VITALS: BP 151/66; TEMP 98.56
== END 2022-08-12 15:25 ==
LOC: ED 22:54 → MED/SURG 08-10 03:34
PROVIDERS: ADMIT Emergency Medicine; ATTEND Internal Medicine
DX: I11.0 Hypertensive heart disease with heart failure (principal); I50.9 Heart failure, unspecified; R53.1 Weakness; R26.81 Unsteadiness on feet; J44.9 Chronic obstructive pulmonary disease, unspecified; F41.8 Other specified anxiety disorders; K21.9 Gastro-esophageal reflux disease without esophagitis; Z79.899 Other long term (current) drug therapy
CPT/HCPCS: 36415; 80053; 83735; 83880; 84484; 85027; 85610; 85730; 87502; 87635; 93005; 94664; 94760; 96372; 96374; 96375; 96376; 99221; 99284; G0378; J1650; J1940; J2405; J3490; U0003

== ENCOUNTER 2022-09-30 13:16 | Outpatient (CLI) | payer OTHER ==
[~2022-09-30 13:16] MED LIST changes: +ACET-206 PO; +ASPIR-LOW81 MG PO; +BUSPIRONE10 MG PO; +CELE200C2 PO; +FURO20TA67 PO; +LEVAQUIN PO; +LOPERAMIDE2 MG PO; +MIRALAX17 GM/SCOO PO; +MULTIVITAMIN1 TA1 PO; +OLANZAPINE ODT PO; +OXYC5TAB24 PO; +PANTOPRAZOLE 40MG TA PO; +TRAMADOL HCL100 MG PO; +ULTRAM 50MG TAB PO
== END 2022-09-30 20:51 | disposition home or self-care (01) ==
LOC: RAD 13:16
PROVIDERS: ATTEND Nurse Practitioner Adult Health
DX: M79.645 Pain in left finger(s) (principal)

== ENCOUNTER 2022-10-06 11:48 | Outpatient (CLI) | payer OTHER | END 2022-10-06 19:20 | disposition home or self-care (01) | LOC: US 11:48 | PROVIDERS: ATTEND Nurse Practitioner Family | DX: S80.11XD Contusion of right lower leg, subsequent encounter (principal); Y92.89 Other specified places as the place of occurrence of the external cause ==

== ENCOUNTER 2022-11-28 15:32 | Emergency (ER) | payer OTHER ==
[~2022-11-28] VITALS: Ht 162.6 cm; Wt 158.8 kg
[2022-11-28 15:35] VITALS: TEMP 98.9
[2022-11-28 15:58] LABS: PLATELET COUNT 364 K/uL (152-353)
[2022-11-28 16:06] LABS: POTASSIUM 3.2 mmol/L (3.6-5.2)
[2022-11-28 17:55] VITALS: BP 173/97
== END 2022-11-28 20:30 | disposition short-term general hospital (02) ==
LOC: ED 15:32
PROVIDERS: Family Medicine
DX: J18.9 Pneumonia, unspecified organism (principal); I50.9 Heart failure, unspecified; I10 Essential (primary) hypertension; E66.01 Morbid (severe) obesity due to excess calories; Z91.199 Patient's noncompliance with other medical treatment and regimen due to unspecified reason
CPT/HCPCS: 36600; 80053; 82805; 83880; 84484; 85027; 85379; 87635; 93005; 94664; 96365; 99284; J0696; J1940; J2930; Q9963; U0003

== ENCOUNTER 2023-01-09 22:53 | Inpatient (IN) | payer OTHER ==
[~2023-01-09] VITALS: Ht 162.6 cm; Wt 157.9 kg
[~2023-01-09 22:53] MED LIST changes: +BUDE1AER5 INH; +BUDESONIDE0.5 MG/2 M INH; -CELE200C2 PO; +CELEBREX100 MG PO; +COZAAR25 MG PO; -FURO20TA67 PO; +NAPROXEN EC500 MG PO; +SIMV10TA PO
[2023-01-09 22:55] VITALS: BP 176/78; TEMP 97.5
[2023-01-09 23:30] VITALS: BP 156/72
[2023-01-10] VITALS (11 sets, daily range): BP systolic 109–180; BP diastolic 49–90; TEMP 97.2–98.9; Ht 162.6 cm; Wt 157.9 kg
[2023-01-10 00:04] LABS: POTASSIUM 3.2 mmol/L (3.6-5.2)
[2023-01-10 00:55] LABS: PLATELET COUNT 381 K/uL (152-353)
[2023-01-11 04:00] VITALS: BP 166/85; TEMP 98.3
[2023-01-11 04:37] LABS: PLATELET COUNT 359 K/uL (152-353)
[2023-01-11 05:14] LABS: POTASSIUM 4.7 mmol/L (3.6-5.2)
[2023-01-11 08:00] VITALS: BP 164/75; TEMP 97.6
[2023-01-11 12:00] VITALS: BP 140/85; TEMP 98.1
[2023-01-11 20:00] VITALS: BP 155/85; TEMP 98.3
[2023-01-12] VITALS: BP 149/69; TEMP 98.5
[2023-01-12 04:00] VITALS: BP 145/72; TEMP 98.2
[2023-01-12 05:04] LABS: POTASSIUM 4.2 mmol/L (3.6-5.2)
[2023-01-12 07:33] VITALS: BP 170/92; TEMP 98
[2023-01-12 12:00] VITALS: BP 156/83; TEMP 98.2
[2023-01-12 16:00] VITALS: BP 146/75; TEMP 98.8
[2023-01-12 20:00] VITALS: BP 118/53; TEMP 98
[2023-01-13] VITALS: BP 145/78; TEMP 98.2
[2023-01-13 04:00] VITALS: BP 144/75; TEMP 98.3
[2023-01-13 08:00] VITALS: BP 181/89; TEMP 97.7
[2023-01-13] MEDS ORDERED: PREDNISONE10 MG PO (11:52)
[2023-01-13 12:04] VITALS: BP 147/78; TEMP 97.8
== END 2023-01-13 14:38 | disposition home or self-care (01) | DRG 191 ==
LOC: ED 22:53 → MED/SURG 01-10 02:05
PROVIDERS: Family Medicine; Internal Medicine; ADMIT Physician Assistant; ATTEND Internal Medicine Endocrinology, Diabetes & Metabolism
DX: J44.1 Chronic obstructive pulmonary disease with (acute) exacerbation (principal); Z68.43 Body mass index [BMI] 50.0-59.9, adult; I50.9 Heart failure, unspecified; Z79.01 Long term (current) use of anticoagulants; R06.09 Other forms of dyspnea; G62.89 Other specified polyneuropathies; R26.81 Unsteadiness on feet; E66.01 Morbid (severe) obesity due to excess calories; Z99.81 Dependence on supplemental oxygen; I11.0 Hypertensive heart disease with heart failure; I25.10 Atherosclerotic heart disease of native coronary artery without angina pectoris; G89.4 Chronic pain syndrome; K21.9 Gastro-esophageal reflux disease without esophagitis
CPT/HCPCS: 36415; 80048; 80053; 83880; 85027; 85379; 94664; 94760; 96365; 96375; 99284; J0360; J0696; J1940; J2920